=== PATIENT | male | born 1950 | race Caucasian/White ===

== ENCOUNTER 2021-03-07 13:30 | Inpatient (IN) ==
[2021-03-07 14:09] LABS: Basophils # (auto) 0.03 K/uL (0-0.2); Basophils % (auto) 0.2 %; Eosinophils # (auto) 0.02 K/uL (0-0.5); Eosinophils % (auto) 0.1 %; Hematocrit (blood only) 32.1 % (42-52); Hemoglobin 9.7 g/dL (14.0-18.0); Immature Granulocytes # (auto) 0.06 K/uL (0.00-0.02); Immature Granulocytes % (auto) 0.4 %; Lymphocytes % (auto) 5.3 %; Mean Corpuscular Hemoglobin 24.6 pg (25-34); Mean Corpuscular Hgb Conc 30.2 g/dL (32-36); Mean Corpuscular Volume 81.3 fL (80-100); Mean Platelet Volume 8.2 fL (7.4-10.4); Monocytes # (auto) 0.58 K/uL (0.11-0.59); Monocytes % (auto) 3.8 %; Neutrophils # (auto) 13.73 K/uL (1.4-6.5); Neutrophils % (auto) 90.2 %; Platelet Count 307 K/uL (130-400); RDW Coefficient of Variation 17.4 % (11.5-14.5); RDW Standard Deviation 52.3 fL (36.4-46.3); Red Blood Count 3.95 M/uL (4.7-6.1); White Blood Count 15.22 K/uL (4.8-10.8)
--- NOTE | 2021-03-07 14:09 | Emergency Department Note ---
Impression & Plan Acute GI bleeding, Rectal cancer, Rectal bleeding ED Provider Note NAME: MAMI WIGGINS AGE: 70 SEX: M : 1950 ARRIVES VIA: Ambulance INFORMANT: Patient ED PROVIDER(S): Alan Barnhart DO CHIEF COMPLAINT: Abdominal pain and rectal pain HPI: Patient is a 70-year-old male who presents to the ER for dark blood per rectum. He has a past medical history of colon cancer with a resection and ileostomy located in left lower quadrant performed over a year ago at [facility]. He notes has been having intermittent blood every 1 to 2 weeks but he is having significantly more amount of pain and bleeding today. All started this morning. Pain was a 10 out of 10 and has improved. Denies any dysuria urgency or frequency. He does take Eliquis. No headache or neck pain. No chest pain or shortness of breath. No other exacerbating or remitting factors. Feels the pain which is sharp and stabbing in the lower belly going to his rectum. He feels like something has to come out. He notices dark blood and questions if there is some mucus present as well. ROS: See above HPI for pertinent positives & negatives. A total of 10 systems reviewed and were otherwise negative. PAST MEDICAL HISTORY:See Below PAST SURGICAL HISTORY:See Below FAMILY HISTORY:See Below SOCIAL HISTORY:See Below HOME MEDICATIONS:See Below ALLERGIES:See Below VITALS:See Below PHYSICAL EXAMINATION: GENERAL: Lying in bed, disheveled, chronically ill-appearing EYE EXAM: normal conjunctiva. PERRL and EOM's grossly intact. OROPHARYNX: no exudate, no erythema, lips, buccal mucosa, and tongue normal and mucous membranes are moist NECK: supple, no nuchal rigidity, no adenopathy, non-tender LUNGS: Clear to auscultation. Normal chest wall mechanics HEART: no murmurs, S1 normal and S2 normal ABDOMEN: abdomen soft, minimally tender in the lower pelvic region with ileostomy left lower quadrant dark brown stool, normo-active bowel sounds, no masses, no rebound or guarding. : Solomon present with clear yellow urine UPPER EXTREMITIES: upper extremities are grossly normal. LOWER EXTREMITIES: No pitting edema. NEURO EXAM: Normal sensorium, cranial nerves II-XII grossly intact, normal s peech, no gross weakness of arms, no gross weakness of legs. MEDICAL DECISION MAKING: Patient is a 70-year-old male who presents ER for right red blood per rectum on apixaban with an ileostomy. IV was established blood was obtained. Labs show leukocytosis of 15,000. Mild anemia at 9.7 consistent with previous. INR was unremarkable. BMP with slightly elevated glucose. LFTs bilirubin was unremarkable. Stool was heme positive for mildly ostomy. Rectally gross bright red blood. CT abdomen pelvis showed no significant change from previous. Discussed with Dr. Ho from [facility] as this patient follows with [facility]. Agrees with observation here. Discussed with hospitalist for further evaluation Dr. Gilberto Hooper. Patient was updated bedside. He remained stable throughout the stay in ER. Did not reverse as hemoglobin was stable including heart rate and blood pressure. Triage Nursing notes reviewed. Limited review of prior medical records performed Vital Signs: reviewed and remarkable for no significant abnormalities Differential diagnosis: Differential diagnosis includes etiologies such as diverticulitis, diverticulosis, AVM, coagulopathy, colitis, inflammatory bowel disease, malignancy, Judith-Rogel tear, esophagitis, peptic ulcer disease, variceal bleed, gastritis, epistaxis, fissure, hemorrhoids, as well as others were entertained. ER treatment provided: See below Diagnostics interpreted by me: ECG: Sinus rhythm rate of 87 Right bundle branch block PVCs QTC 474 Poor baseline Cardiac Monitoring: An order was placed for continuous cardiac monitoring. The monitor shows a rate of 78 with sinus rhythm. Laboratory studies: As stated above and show below. Imaging studies: CT abdomen pelvis as described above Consultation(s): Discussed with [facility] Dr. Ho Discussed with Dr. Gilberto Hooper for admission Procedures: none Critical Care: None Past Med/Surg History Medical History (Updated 03/07/21 @ 20:31 by Alan Barnhart DO) Aortic valve stenosis Basal cell carcinoma Carotid stenosis COPD (chronic obstructive pulmonary disease) Coronary heart disease CVA (cerebral vascular accident) Deviated nasal septum Diabetes External hemorrhoid Gallstone pancreatitis GERD (gastroesophageal reflux disease) Glaucoma H/O fracture of skull Steel plate Hearing loss Hyperlipidemia Hypertension Left hemiparesis Osteoarthritis Peptic ulcer disease Prostate cancer Surgical History History of left cataract surgery Hx of colonoscopy S/P hernia repair S/P shoulder surgery Left shoulder S/P tonsillectomy Family History Mother , 99yo Stomach ulcer Father , 84yo Hx of CABG Diabetes Heart valve replaced Brother Heart valve replaced Brother Prostate cancer Social History Smoking Status: Former smoker Cigarettes Per Day: Smoked 2 PPD x 50yrs but was less over past couple yrs;; Second Hand Exposure: No; Hx Alcohol Use: No Hx Substance Use: Yes Preferred Language: Guatemalan Communication Ability: Effective Visual Impairment: No Limitations Hearing Ability: Hard of Hearing Mounter Automatic Required: No Beliefs That Will Affect Care: None marital status: Current Living Situation: Alone Current Living Situation Comment: Lives at [facility] in [place]; 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; Feels Safe at Home: Yes caffeine: No during the past year weight has: remained stable Allergies Allergies Allergy/AdvReac Type Severity Reaction Status Date / Time No Known Drug Allergies Allergy Unknown Verified 03/07/21 16:35 Home Meds Home Medications Medication Instructions Recorded Confirmed latanoprost 0.005 % eye drops 1 drops OPB HS 05/30/19 03/07/21 nitroglycerin 0.4 mg sublingual 0.4 mg SL Q5M PRN 05/30/19 03/07/21 tablet pravastatin 40 mg tablet 40 mg PO HS 05/30/19 03/07/21 tamsulosin 0.4 mg capsule 0.4 mg PO DAILY 05/30/19 03/07/21 aspirin 81 mg tablet,delayed 81 mg PO DAILY 06/02/19 03/07/21 release (Adult Aspirin Regimen) albuterol sulfate 2.5 mg INH Q4H PRN 10/05/19 03/07/21 albuterol sulfate 90 mcg/actuation 2 puffs INH Q4H PRN 10/05/19 03/07/21 breath activated powder inhaler docusate sodium 100 mg capsule 100 mg PO BID 10/05/19 03/07/21 guaifenesin 200 mg tablet 400 mg PO BID tab 10/05/19 03/07/21 multivitamin 1 tab PO DAILY 10/05/19 03/07/21 apixaban 2.5 mg tablet (Eliquis) 2.5 mg PO Q12 12/06/19 03/07/21 acetaminophen 325 mg tablet 650 mg PO Q8 03/07/21 03/07/21 fluticasone 500 mcg-salmeterol 50 1 inh INHALATION BID 03/07/21 03/07/21 mcg/dose blistr powdr for inhalation (Maggiirineonazia Inhub) megestrol 40 mg tablet 80 mg PO TID 03/07/21 03/07/21 metoprolol tartrate 50 mg tablet 25 mg PO BID 03/07/21 03/07/21 naloxone 4 mg/actuation nasal 1 spray INTRANASAL DAILY PRN 03/07/21 03/07/21 spray (Narcan) ondansetron HCl 8 mg tablet 8 mg PO Q8H PRN 03/07/21 03/07/21 oxycodone 5 mg tablet 5 mg PO Q6 03/07/21 03/07/21 tiotropium bromide 18 mcg capsule 1 cap INHALATION DAILY 03/07/21 03/07/21 with inhalation device (Spiriva with HandiHaler) Previous Rx's Medication Instructions Recorded finasteride 5 mg tablet 5 mg PO DAILY #30 tab 10/25/19 Results & Data (ED) Vital Signs Vital Signs - 24 hr 03/07/21 13:51 03/07/21 14:00 03/07/21 14:23 Temperature 37.1 C Temperature Source Oral Pulse Rate 79 79 Pulse Rate from SpO2 Sensor Respiratory Rate 16 20 Respiratory Effort / Characteristics Non-Labored Respiratory Depth Normal Blood Pressure 127/87 123/59 L Blood Pressure Mean 100 80 Blood Pressure Position Sitting Pulse Oximetry 95 95 96 Oxygen Delivery Method Room Air Room Air Room Air Sepsis Recent Fever Within 48 Hours No Sepsis New/Unexplained Change in Mental Status N/A Sepsis Action Taken by Nursing No Action Required 03/07/21 14:30 03/07/21 16:00 03/07/21 16:30 Temperature Temperature Source Pulse Rate 75 88 81 Pulse Rate from SpO2 Sensor 75 81 Respiratory Rate 20 22 17 Respiratory Effort / Characteristics Respiratory Depth Blood Pressure 140/54 L Blood Pressure Mean 82 Blood Pressure Position Pulse Oximetry 97 96 93 Oxygen Delivery Method Room Air Room Air Sepsis Recent Fever Within 48 Hours Sepsis New/Unexplained Change in Mental Status Sepsis Action Taken by Nursing 03/07/21 17:00 03/07/21 17:30 03/07/21 18:00 Temperature Temperature Source Pulse Rate 78 91 H 86 Pulse Rate from SpO2 Sensor 78 Respiratory Rate 16 25 H 27 H Respiratory Effort / Characteristics Respiratory Depth Blood Pressure 164/75 H Blood Pressure Mean 104 Blood Pressure Position Pulse Oximetry 95 Oxygen Delivery Method Sepsis Recent Fever Within 48 Hours Sepsis New/Unexplained Change in Mental Status Sepsis Action Taken by Nursing 03/07/21 18:30 03/07/21 19:00 03/07/21 19:30 Temperature Temperature Source Pulse Rate 74 84 83 Pulse Rate from SpO2 Sensor Respiratory Rate 13 22 24 Respiratory Effort / Characteristics Respiratory Depth Blood Pressure Blood Pressure Mean Blood Pressure Position Pulse Oximetry Oxygen Delivery Method Sepsis Recent Fever Within 48 Hours Sepsis New/Unexplained Change in Mental Status Sepsis Action Taken by Nursing 03/07/21 20:00 Temperature Temperature Source Pulse Rate 74 Pulse Rate from SpO2 Sensor Respiratory Rate 21 Respiratory Effort / Characteristics Respiratory Depth Blood Pressure Blood Pressure Mean Blood Pressure Position Pulse Oximetry Oxygen Delivery Method Sepsis Recent Fever Within 48 Hours Sepsis New/Unexplained Change in Mental Status Sepsis Action Taken by Nursing Laboratory Data Result diagrams: 03/07/21 13:59 03/07/21 13:59 Lab Results 03/07/21 03/07/21 03/07/21 Range/Units 13:58 13:59 13:59 WBC 15.22 H (4.8-10.8) K/uL RBC 3.95 L (4.7-6.1) M/uL Hgb 9.7 L (14.0-18.0) g/dL Hct 32.1 L (42-52) % MCV 81.3 (80-100) fL MCH 24.6 L (25-34) pg MCHC 30.2 L (32-36) g/dL RDW Std Deviation 52.3 H (36.4-46.3) fL RDW Coeff of Shorty 17.4 H (11.5-14.5) % Plt Count 307 (130-400) K/uL MPV 8.2 (7.4-10.4) fL Immature Gran % (Auto) 0.4 % Neut % (Auto) 90.2 % Lymph % (Auto) 5.3 % [place] % (Auto) 3.8 % Eos % (Auto) 0.1 % Baso % (Auto) 0.2 % Neut # (Auto) 13.73 H (1.4-6.5) K/uL Lymph # (Auto) 0.80 L (1.2-3.4) K/uL [place] # (Auto) 0.58 (0.11-0.59) K/uL Eos # (Auto) 0.02 (0-0.5) K/uL Baso # (Auto) 0.03 (0-0.2) K/uL Immature Gran # (Auto) 0.06 H (0.00-0.02) K/uL PT (9.0-12.0) Seconds INR (0.9-1.1) APTT (21.0-31.0) Seconds PTT Ratio Sodium (136-145) mmol/L Potassium (3.5-5.1) mmol/L Chloride (98-107) mmol/L Carbon Dioxide (21-32) mmol/L Anion Gap (3-11) BUN (7-18) mg/dl Creatinine (0.6-1.4) mg/dl Est Cr Clr Drug Dosing ml/min Est GFR ( Amer) ml/min Est GFR (Non-Af Amer) ml/min BUN/Creatinine Ratio (10-20) Glucose (70-99) mg/dl Calcium (8.5-10.1) mg/dl Total Bilirubin (0.2-1) mg/dl AST (15-37) U/L ALT (12-78) U/L Alkaline Phosphatase (45-117) U/L Total Protein (6.4-8.2) gm/dl Albumin (3.4-5.0) gm/dl Globulin (2.5-4.0) gm/dl Albumin/Globulin Ratio (0.9-2) POC Stool Occult Blood Positive A (Negative) COVID-19 Eval Order SARS-CoV-2 (PCR) (Negative) Blood Type A Positive Antibody Screen NEGATIVE 03/07/21 03/07/21 03/07/21 Range/Units 13:59 13:59 14:00 WBC (4.8-10.8) K/uL RBC (4.7-6.1) M/uL Hgb (14.0-18.0) g/dL Hct (42-52) % MCV (80-100) fL MCH (25-34) pg MCHC (32-36) g/dL RDW Std Deviation (36.4-46.3) fL RDW Coeff of Shorty (11.5-14.5) % Plt Count (130-400) K/uL MPV (7.4-10.4) fL Immature Gran % (Auto) % Neut % (Auto) % Lymph % (Auto) % [place] % (Auto) % Eos % (Auto) % Baso % (Auto) % Neut # (Auto) (1.4-6.5) K/uL Lymph # (Auto) (1.2-3.4) K/uL [place] # (Auto) (0.11-0.59) K/uL Eos # (Auto) (0-0.5) K/uL Baso # (Auto) (0-0.2) K/uL Immature Gran # (Auto) (0.00-0.02) K/uL PT 10.9 (9.0-12.0) Seconds INR 1.1 (0.9-1.1) APTT 29.0 (21.0-31.0) Seconds PTT Ratio 1.1 Sodium 138 (136-145) mmol/L Potassium 3.9 (3.5-5.1) mmol/L Chloride 105 (98-107) mmol/L Carbon Dioxide 25 (21-32) mmol/L Anion Gap 9.0 (3-11) BUN 19 H (7-18) mg/dl Creatinine 0.81 (0.6-1.4) mg/dl Est Cr Clr Drug Dosing 79.8 ml/min Est GFR ( Amer) 102.9 ml/min Est GFR (Non-Af Amer) 88.8 ml/min BUN/Creatinine Ratio 22.9 H (10-20) Glucose 121 H (70-99) mg/dl Calcium 8.8 (8.5-10.1) mg/dl Total Bilirubin 0.3 (0.2-1) mg/dl AST 20 (15-37) U/L ALT 15 (12-78) U/L Alkaline Phosphatase 66 (45-117) U/L Total Protein 7.0 (6.4-8.2) gm/dl Albumin 2.6 L (3.4-5.0) gm/dl Globulin 4.4 H (2.5-4.0) gm/dl Albumin/Globulin Ratio 0.6 L (0.9-2) POC Stool Occult Blood (Negative) COVID-19 Eval Order Covid19 at [facility] SARS-CoV-2 (PCR) (Negative) Blood Type Antibody Screen 03/07/21 Range/Units 14:00 WBC (4.8-10.8) K/uL RBC (4.7-6.1) M/uL Hgb (14.0-18.0) g/dL Hct (42-52) % MCV (80-100) fL MCH (25-34) pg MCHC (32-36) g/dL RDW Std Deviation (36.4-46.3) fL RDW Coeff of Shorty (11.5-14.5) % Plt Count (130-400) K/uL MPV (7.4-10.4) fL Immature Gran % (Auto) % Neut % (Auto) % Lymph % (Auto) % [place] % (Auto) % Eos % (Auto) % Baso % (Auto) % Neut # (Auto) (1.4-6.5) K/uL Lymph # (Auto) (1.2-3.4) K/uL [place] # (Auto) (0.11-0.59) K/uL Eos # (Auto) (0-0.5) K/uL Baso # (Auto) (0-0.2) K/uL Immature Gran # (Auto) (0.00-0.02) K/uL PT (9.0-12.0) Seconds INR (0.9-1.1) APTT (21.0-31.0) Seconds PTT Ratio Sodium (136-145) mmol/L Potassium (3.5-5.1) mmol/L Chloride (98-107) mmol/L Carbon Dioxide (21-32) mmol/L Anion Gap (3-11) BUN (7-18) mg/dl Creatinine (0.6-1.4) mg/dl Est Cr Clr Drug Dosing ml/min Est GFR ( Amer) ml/min Est GFR (Non-Af Amer) ml/min BUN/Creatinine Ratio (10-20) Glucose (70-99) mg/dl Calcium (8.5-10.1) mg/dl Total Bilirubin (0.2-1) mg/dl AST (15-37) U/L ALT (12-78) U/L Alkaline Phosphatase (45-117) U/L Total Protein (6.4-8.2) gm/dl Albumin (3.4-5.0) gm/dl Globulin (2.5-4.0) gm/dl Albumin/Globulin Ratio (0.9-2) POC Stool Occult Blood (Negative) COVID-19 Eval Order SARS-CoV-2 (PCR) NEGATIVE (Negative) Blood Type Antibody Screen Administered Medications Discontinued Medications Ioversol (Optiray 320 100ml) 90 ml IV ONCE ONE Stop: 03/07/21 15:50 Last Admin: 03/07/21 15:54 Dose: 90 ml Documented by: [id number] Imaging Data Radiologist's Impression: Abdomen/Pelvis CT 03/07/21 15:18 CT SCAN OF THE ABDOMEN AND PELVIS WITH IV CONTRAST CLINICAL HISTORY: Rectal bleeding. Rectal carcinoma. COMPARISON STUDY: Abdominal CT dated 12/13/2020. Pelvic MRI dated 02/12/2021. TECHNIQUE: Following the IV administration of 90 cc of Optiray 320, CT scan of the abdomen and pelvis is performed from the lung bases to the proximal femora. Images are reviewed in the axial, sagittal, and coronal planes. IV contrast was administered without complication. A dose lowering technique was utilized adhering to the principles of ALARA. CT DOSE: 430.41 mGy.cm FINDINGS: Lung bases: The heart is mildly enlarged and without pericardial effusion. There is evidence of previous valve surgery. Pacemaker leads are noted. The coronary arteries and mitral annulus are densely calcified. The lung bases are clear noting bibasilar scarring/atelectasis. Liver: The contrast-enhanced liver is normal in size, contour, and attenuation. There is no intrahepatic biliary ductal dilatation. The hepatic veins and portal veins are patent. There are scattered calcified granulomas. Gallbladder: Unremarkable. Spleen: Normal in size and attenuation. Pancreas: Moderately atrophic and grossly unremarkable. Adrenal glands: Mild nodularity of the adrenal glands is unchanged. Kidneys: The contrast enhanced kidneys demonstrate mild cortical atrophy and are without hydronephrosis. The kidneys enhance symmetrically. A 4.9 cm cyst is again seen arising from the right lower pole. This contains thick enhancing and calcified septations, and is similar to previous. A 2.7 cm septated cyst is again seen in the interpolar left kidney. Additional subcentimeter cortical hypodensities likely represent cysts but are too small for definitive characterization. Abdominal vasculature: There is advanced atherosclerotic calcification and mild ectasia of the abdominal aorta. Bowel: There is postoperative change from double barrel colostomy in the left lower quadrant. A small parastomal hernia contains nonobstructed portions of colon. No bowel obstruction is identified. The rectal wall is thickened and edematous. Irregularity/discontinuity is again seen involving the anterior wall of the rectum, likely representing treatment related change and possible perforation this is best seen on axial image #357. Several perirectal nodules/lymph nodes are identified. The largest is seen on image #333 and measures 1 1.9 x 1.0 0 cm. The appendix is not well-visualized. Peritoneum: There is no intraperitoneal free air or abdominal ascites. Lymphadenopathy: None. Pelvic viscera: Diffuse infiltration is seen throughout the pelvis. The prostate gland is enlarged and heterogeneous. A Solomon catheter is in place. The bladder is partially distended and appears markedly thick walled with pericystic inflammation. A bladder diverticulum is seen posteriorly on the left. Skeletal structures: The skeletal structures are osteopenic. There is moderate lumbosacral spondylosis. Chronic compression deformities are again seen T11, T12, and L1. No lytic or blastic lesions are seen. Arthritic change is noted in the hips. IMPRESSION: 1. Again seen is postoperative change from double barrel colostomy in the left lower quadrant. There is no bowel obstruction. 2. Rectal wall thickening and edema is similar to previous. Focal discontinuity/irregularity of the anterior rectal wall likely represents treatment related change/contained perforation. This is unchanged from previous. 3. Enlarged perirectal nodules/lymph nodes are similar to previous. 4. The bladder wall appears markedly thickened with surrounding infiltration. Th is is typical for cystitis and may be treatment related. Correlate with clinical findings and urinalysis. 5. There is no evidence of distant metastatic disease in the abdomen or pelvis. 6. Septated cystic renal lesions are unchanged. These are consistent with Bosniak 2F lesions. 7. Additional findings as above. ACT 112: Negative or not required by law. Electronically signed by: Michel Noguera M.D. 03/07/2021 4:13 PM Discharge Plan Visit Data Chief Complaint: Rectal Bleed Stated Complaint: LOWER AB & RECTAL PAIN ED Provider: Alan Barnhart Discharge Problem: Acute GI bleeding, Rectal cancer, Rectal bleeding Forms Stand Alone Forms: [facility] Prescriptions Prescriptions: No Action albuterol sulfate 90 mcg/actuation aerosol powdr breath activated 2 puffs INH Q4H PRN (Reason: Shortness Of Breath Or Wheezing) RF: 0 albuterol sulfate 2.5 mg /3 mL (0.083 %) solution for nebulization 2.5 mg INH Q4H PRN (Reason: Shortness Of Breath Or Wheezing) RF: 0 docusate sodium 100 mg capsule 100 mg PO BID RF: 0 multivitamin Tablet 1 tab PO DAILY RF: 0 Eliquis 2.5 mg tablet 2.5 mg PO Q12 RF: 0 aspirin [Adult Aspirin Regimen] 81 mg tablet,delayed release (DR/EC) 81 mg PO DAILY RF: 0 latanoprost 0.005 % drops 1 drops OPB HS RF: 0 nitroglycerin 0.4 mg tablet, sublingual 0.4 mg SL Q5M PRN (Reason: Chest Pain) RF: 0 pravastatin 40 mg tablet 40 mg PO HS RF: 0 tamsulosin 0.4 mg capsule 0.4 mg PO DAILY RF: 0 guaifenesin 200 mg tablet 400 mg PO BID RF: 0 finasteride 5 mg tablet 5 mg PO DAILY Qty: 30 RF: 11 fluticasone propion-salmeterol [Wixela Inhub] 500-50 mcg/dose Blister With Device 1 inh INHALATION BID RF: 0 Spiriva with HandiHaler 18 mcg Capsule, W/Inhalation Device 1 cap INHALATION DAILY RF: 0 ondansetron HCl 8 mg Tablet 8 mg PO Q8H PRN (Reason: Nausea And Vomiting) RF: 0 Narcan 4 mg/actuation [place],Non-Aerosol 1 spray INTRANASAL DAILY PRN (Reason: Opioid Overdose) RF: 0 acetaminophen 325 mg Tablet 650 mg PO Q8 RF: 0 metoprolol tartrate 50 mg Tablet 25 mg PO BID RF: 0 megestrol 40 mg Tablet 80 mg PO TID RF: 0 oxycodone 5 mg tablet 5 mg PO Q6 RF: 0 Referrals Referrals: Kendra Rodriguez PA-C [Primary Care Provider] -
[2021-03-07 14:18] LABS: INR 1.1 (0.9-1.1); Partial Thromboplastin Ratio 1.1; Prothrombin Time 10.9 Seconds (9.0-12.0)
[2021-03-07 14:24] LABS: Albumin Level 2.6 gm/dl (3.4-5.0); BUN Creatinine Ratio 22.9 (10-20); Calcium 8.8 mg/dl (8.5-10.1); Creatinine Clr Calc Pharmacy 79.8 ml/min; Est GFR (African American) 102.9 ml/min; Est GFR (Non-African American) 88.8 ml/min; Potassium 3.9 mmol/L (3.5-5.1)
[2021-03-07 14:27] LABS: Albumin Globulin Ratio 0.6 (0.9-2); Bilirubin,Total 0.3 mg/dl (0.2-1); Globulin 4.4 gm/dl (2.5-4.0)
[2021-03-07] MEDS ORDERED: OPTIRAY 320 100ml IV ONE (15:49)
--- NOTE | 2021-03-07 16:14 | CT Scan Report ---
CT SCAN OF THE ABDOMEN AND PELVIS WITH IV CONTRAST CLINICAL HISTORY: Rectal bleeding. Rectal carcinoma. COMPARISON STUDY: Abdominal CT dated 12/13/2020. Pelvic MRI dated 02/12/2021. TECHNIQUE: Following the IV administration of 90 cc of Optiray 320, CT scan of the abdomen and pelvi s is performed from the lung bases to the proximal femora. Images are reviewed in the axial, sagittal , and coronal planes. IV contrast was administered without complication. A dose lowering technique wa s utilized adhering to the principles of ALARA. CT DOSE: 430.41 mGy.cm FINDINGS: Lung bases: The heart is mildly enlarged and without pericardial effusion. There is evidence of previ ous valve surgery. Pacemaker leads are noted. The coronary arteries and mitral annulus are densely ca lcified. The lung bases are clear noting bibasilar scarring/atelectasis. Liver: The contrast-enhanced liver is normal in size, contour, and attenuation. There is no intrahepa tic biliary ductal dilatation. The hepatic veins and portal veins are patent. There are scattered ghada cified granulomas. Gallbladder: Unremarkable. Spleen: Normal in size and attenuation. Pancreas: Moderately atrophic and grossly unremarkable. Adrenal glands: Mild nodularity of the adrenal glands is unchanged. Kidneys: The contrast enhanced kidneys demonstrate mild cortical atrophy and are without hydronephros is. The kidneys enhance symmetrically. A 4.9 cm cyst is again seen arising from the right lower pole. This contains thick enhancing and calcified septations, and is similar to previous. A 2.7 cm septate d cyst is again seen in the interpolar left kidney. Additional subcentimeter cortical hypodensities l ikely represent cysts but are too small for definitive characterization. Abdominal vasculature: There is advanced atherosclerotic calcification and mild ectasia of the abdomi nal aorta. Bowel: There is postoperative change from double barrel colostomy in the left lower quadrant. A small parastomal hernia contains nonobstructed portions of colon. No bowel obstruction is identified. The rectal wall is thickened and edematous. Irregularity/discontinuity is again seen involving the anteri or wall of the rectum, likely representing treatment related change and possible perforation this is best seen on axial image #357. Several perirectal nodules/lymph nodes are identified. The largest is seen on image #333 and measures 1 1.9 x 1.0 0 cm. The appendix is not well-visualized. Peritoneum: There is no intraperitoneal free air or abdominal ascites. Lymphadenopathy: None. Pelvic viscera: Diffuse infiltration is seen throughout the pelvis. The prostate gland is enlarged an d heterogeneous. A Solomon catheter is in place. The bladder is partially distended and appears markedl y thick walled with pericystic inflammation. A bladder diverticulum is seen posteriorly on the left. Skeletal structures: The skeletal structures are osteopenic. There is moderate lumbosacral spondylosi s. Chronic compression deformities are again seen T11, T12, and L1. No lytic or blastic lesions are s een. Arthritic change is noted in the hips. IMPRESSION: 1. Again seen is postoperative change from double barrel colostomy in the left lower quadrant. There is no bowel obstruction. 2. Rectal wall thickening and edema is similar to previous. Focal discontinuity/irregularity of the a nterior rectal wall likely represents treatment related change/contained perforation. This is unchang ed from previous. 3. Enlarged perirectal nodules/lymph nodes are similar to previous. 4. The bladder wall appears markedly thickened with surrounding infiltration. This is typical for cys titis and may be treatment related. Correlate with clinical findings and urinalysis. 5. There is no evidence of distant metastatic disease in the abdomen or pelvis. 6. Septated cystic renal lesions are unchanged. These are consistent with Bosniak 2F lesions. 7. Additional findings as above. ACT 112: Negative or not required by law. Electronically signed by: Michel Noguera M.D. 03/07/2021 4:13 PM
--- NOTE | 2021-03-07 17:50 | History & Physical Report ---
Date of Service March 07, 2021 Assessment & Plan (1) GI bleed: Plan: -Patient with chronic history of GI bleed from GI cancer and post partial colectomy and colostomy bag placement. -Vitals stable upon coming into the ED. No symptomatic signs of blood loss. -Hgb 9.7, WBC 15.22, Plt 307. -Unknown etiology of GI bleed at this point, Cancer bleed etiology vs irritation from bladder vs post-surgical adhesion vs perforation -Will continue to monitor patient vitals and if tachycardic or shows signs and symptoms of anemia will give fluid, H&H and if low transfuse. Consent was given to patient and informed about the blood transfusion. -Will continue to trend the H&H. (2) Acute anemia: Plan: -Hgb 9.7, WBC 15.22, Plt 307. -Will continue to monitor patient vitals and if tachycardic or shows signs and symptoms of anemia will give fluid, H&H and if low transfuse. Consent was given to patient and informed about the blood transfusion. -Will continue to trend the H&H. (3) Rectal cancer: Plan: Possible re-emergence of rectal cancer. According to patient prior cancer was pretty extensive in the region that was resected. Will follow with H&H for potential bleed due to cancer and look to pain control for the patient until he is feeling better to see the surgeon outpatient. (4) BPH NOS w ur obs/LUTS: Plan: Patient on home medication for BPH. Continue home meds. (5) Cystitis: Plan: CT abdomen pelvis shows bladder wall appears markedly thickened with surrounding infiltration. This is typical for cystitis and may be treatment related. May have some bladder inflammation that contributes to bowel wall irritation. Plan: 70 year old male with past medical history of colorectal cancer s/p chemotherapy and partial colectomy, aortic valve replacement, COPD, pancreatitis, glaucoma, HTN, DM, CAD, severe aortic stenosis (valve area of 0.7 as of 01/2019) s/p TAVR 01/2020, and prostate cancer coming in for rectal pain and bleeding. Code Status: DNI, Still wants CPR to be done if heart stops. History of Present Illness Chief Complaint: Bleeding per rectum Primary Care Provider: BOUCHRA BarreraC 70 year old male with past medical history of colorectal cancer s/p chemotherapy and partial colectomy, aortic valve replacement, COPD, pancreatitis, glaucoma, HTN, DM, CAD, severe aortic stenosis (valve area of 0.7 as of 01/2019) s/p TAVR 01/2020, and prostate cancer who came into the ED for rectal bleeding since 9AM this morning. Patient states he has had the rectal bleeding with pain on and off for the past 8 or 9 months since he first got his colostomy bag. He said that every week or 10 days he gets episodes of blood per rectum with sharp pain to the rectum and groin. He had previously gone to [place] a month ago for the same thing but was given outpatient OT with little success. He said this episode has started since this morning at around 9AM. The episodes of pain come in intervals of 10-15 minutes and cause 10/10 pain. Patient unsure of what color the blood was but said most likely bright red blood. Patient says that he takes all his medications once in the morning and once at night and the only difference is night time he takes aspirin. Patient most likely took Eliquis this morning since it is twice a day and he took the morning medication already. Patient denies any fevers, chills, lightheadedness, headaches, shortness of breath, chest pain. Patient was noted to be on Eliquis, however upon further inspection through the [employer] EMR he was on the Eliquis for a little while after his stroke in 2006 and it was renewed recently as patient got it in the mail and started taking it. Eliquis was not for his TAVR. Allergies Allergy/AdvReac Type Severity Reaction Status Date / Time No Known Drug Allergies Allergy Unknown Verified 03/07/21 16:35 Home Medications Medication Instructions Recorded Confirmed Type latanoprost 0.005 % eye drops 1 drops OPB HS 05/30/19 03/07/21 History nitroglycerin 0.4 mg sublingual 0.4 mg SL Q5M PRN 05/30/19 03/07/21 History tablet pravastatin 40 mg tablet 40 mg PO HS 05/30/19 03/07/21 History tamsulosin 0.4 mg capsule 0.4 mg PO DAILY 05/30/19 03/07/21 History aspirin 81 mg tablet,delayed 81 mg PO DAILY 06/02/19 03/07/21 History release (Adult Aspirin Regimen) albuterol sulfate 2.5 mg INH Q4H PRN 10/05/19 03/07/21 History albuterol sulfate 90 mcg/actuation 2 puffs INH Q4H PRN 10/05/19 03/07/21 History breath activated powder inhaler docusate sodium 100 mg capsule 100 mg PO BID 10/05/19 03/07/21 History guaifenesin 200 mg tablet 400 mg PO BID tab 10/05/19 03/07/21 History multivitamin 1 tab PO DAILY 10/05/19 03/07/21 History finasteride 5 mg tablet 5 mg PO DAILY #30 tab 10/25/19 03/07/21 Rx apixaban 2.5 mg tablet (Eliquis) 2.5 mg PO Q12 12/06/19 03/07/21 History acetaminophen 325 mg tablet 650 mg PO Q8 03/07/21 03/07/21 History fluticasone 500 mcg-salmeterol 50 1 inh INHALATION BID 03/07/21 03/07/21 History mcg/dose blistr powdr for inhalation (Maggixnazia Inhub) megestrol 40 mg tablet 80 mg PO TID 03/07/21 03/07/21 History metoprolol tartrate 50 mg tablet 25 mg PO BID 03/07/21 03/07/21 History naloxone 4 mg/actuation nasal 1 spray INTRANASAL DAILY PRN 03/07/21 03/07/21 History spray (Narcan) ondansetron HCl 8 mg tablet 8 mg PO Q8H PRN 03/07/21 03/07/21 History oxycodone 5 mg tablet 5 mg PO Q6 03/07/21 03/07/21 History tiotropium bromide 18 mcg capsule 1 cap INHALATION DAILY 03/07/21 03/07/21 History with inhalation device (Spiriva with HandiHaler) Past Med/Surg History Medical History (Updated 03/07/21 @ 20:01 by Garth Valdes DO) Aortic valve stenosis Basal cell carcinoma Carotid stenosis COPD (chronic obstructive pulmonary disease) Coronary heart disease CVA (cerebral vascular accident) Deviated nasal septum Diabetes External hemorrhoid Gallstone pancreatitis GERD (gastroesophageal reflux disease) Glaucoma H/O fracture of skull Steel plate Hearing loss Hyperlipidemia Hypertension Left hemiparesis Osteoarthritis Peptic ulcer disease Prostate cancer Surgical History History of left cataract surgery Hx of colonoscopy S/P hernia repair S/P shoulder surgery Left shoulder S/P tonsillectomy Family History Mother , 99yo Stomach ulcer Father , 84yo Hx of CABG Diabetes Heart valve replaced Brother Heart valve replaced Brother Prostate cancer Social History Smoking Status: Former smoker Cigarettes Per Day: Smoked 2 PPD x 50yrs but was less over past couple yrs;; Second Hand Exposure: No; Hx Alcohol Use: No Hx Substance Use: Yes Preferred Language: Fijian Communication Ability: Effective Visual Impairment: No Limitations Hearing Ability: Hard of Hearing 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: No Beliefs That Will Affect Care: None marital status: Current Living Situation: Alone Current Living Situation Comment: Lives at [facility] in [place]; current occupational status: retired 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 Cardiovascular: RRR, no murmur, no edema Chest (Breasts): normal inspection/palpation of breasts Gastrointestinal (Abdomen): Bowel sounds present in all 4 quadrants. Colostomy in left lower quadrant, no blood seen however bag was just changed. Patient had episode of pain at rectum and groin while I was present where he was stiff with pain. Abdomen non-tender, soft, non-distended. Psychiatric: A+Ox3, euthymic affect Results & Data Results & [facility] ([facility]) Vital Signs (Past 12 Hours) Vital Signs Temp Pulse Resp BP Pulse Ox 03/07/21 16:00 88 22 140/54 L 96 03/07/21 14:30 75 20 97 03/07/21 14:23 96 03/07/21 14:00 79 20 123/59 L 95 03/07/21 13:51 37.1 C 79 16 127/87 95 Supervising Physician Co-Signing Physician Notes I personally examined the patient and verified all tiwari points of history and exam, discussed case, and agree with decision making with Dr Valdes Comes in with rectal bleedingbut notes this is a largely ongoing process that may be slightly worse as far as bleeding today. More than that he was having a very bad day with pain. He notes that he feels a degree of bladder contraction, and then very quickly thereafter he has either bladder pain and pressure or an intense rectal pain or bothmostly the rectal pain "terrible and intenseand then he has bleeding. These episodes last about 15 minutes from start to finish and he does not really have any significant pain in between. His bowels through his ostomy have been working normally, he has not noted any blood there. He is eating and drinking reasonably welland actually notes that in the last few days to may be a little bit longer his appetite has been improving. He does not feel weak, lightheaded, dizzy. He notes that from years and years of smoking his breathing is not as good as he would like to be and wonders if anything else can be donebut none of this is acute. Extensive chart reviewing done, given that most of his medical care is done at [facility], and he is not extremely aware of his medical details. Vitals noted, in general he is awake and alert pleasant no distress. HEENT normocephalic atraumatic mucous membranes moist. Breathing unlabored no accessory muscle use good effort. Abdomen is soft nondistended nontender no masses organomegaly, no guarding no rebound no rigidity. Ostomy bag has just been changed, so there is no stool in the bag at the time I see him, but it was reported to be very abnormal earlier. Rectum without overt gross blood or visual lesionsdue to the potentially friable tissue from his radiation treatment and malignancy, I opted to not check a digital rectal exam, and rather visually examined, due to risk of potential harm. Abdominal/rectal paingiven the way it seems to start with bladder symptoms and then very quickly progressed to rectal pain and then bleeding, and given his postop anatomy/malignant anatomy/potential radiation proctitis etc.I wonder if his bladder is adhered to his rectal stump, and that bladder contractions pulling on his rectum may be causing some of this pain. Not entirely clear, and I would like to discuss the case with his colorectal surgeon, and hopefully will be able to get in touch with him tomorrow. In the meantime, pain control with oxycodone/as needed morphine. He also wonders if his Solomon is not draining properly leading to some of the worsening recentlywe will ask nursing to change it. Rectal bleedingfrom malignancy, radiation proctitis, or both as the most likely. Fortunately is completely hemodynamically stable. Because of the fact that today seems a little bit worse with bleeding for him, we will observe with expectant management as though he could have a significant GI bleed, although fortunately I do not think this will be the case. He has good IV access, will follow his hemoglobin, he does not appear to need IV fluids at this time, but should he become even tachycardic we will give isotonic fluid boluses, and will have blood on hold if necessary. Pelvic findings on CTwhile the question of a small contained perforation is raised, on physical exam his abdomen is surprisingly benign, and he shows no history type signs of perforation or peritonitis, given that his belly does not hurt, his appetite is improving, his ostomy is working, etc. Serial exams, serial labs, serial history. Leukocytosisnonspecificsee above, but no clear findings of infection/perforation/peritonitis. Will check a CRP and pro calcitonin, follow closely, CBC in a.m. as well. No clear role for empiric antibiotics given how well he looks, outside of his bouts of rectal pain. Anticoagulationhe had no idea why he was on Eliquis. In review of records, I was able to find his discharge summary after his TAVR/pacemaker, and he was not on anticoagulation thenrather just dual antiplatelets. I do not see a history of A. fibalthough certainly with his back history this would be possible, and I do not see a history of venous thromboembolic diseasewhich again could be theoretically possible, but I see no record of it. Because of the rectal bleeding, and because of the fact that there is not an overt reason for his anticoagulation that would not be able to be interrupted, we will briefly hold the anticoagulation and antiplatelets to allow the bleeding to slow. The only clue I could possibly find in regards to his anticoagulation was a PCP note from about a year ago, during which time the patient himself asks the question of if he should be on Eliquisnoting that he had been on it quite a while ago was not taking it for quite a while, but had received a prescription fill through a mail order pharmacy for reasons that he was not clear of. With all of that, as well as with the bleeding and pain situationit seems more beneficial than risky to hold the Eliquis for now until the bleeding declares itself while we continue to see exactly what his indication for anticoagulation was. Resident Activity Tracking Resident Involvement: Resident Care Provided Care Provided: Adult Hospital Medicine
--- NOTE | 2021-03-07 20:06 | Billing Data ---
Date of Service March 07, 2021 Coding Level of Care Code 07858 Subseq Hosp Care Lvl 3
[2021-03-07] MEDS ORDERED: SODIUM CHLORIDE 0.9% 250 ML IV PRN (22:01)
[2021-03-07] MEDS ORDERED: ONDANSETRON INJ 2 MG/ML 2 ML VIAL IV PRN (22:01)
[2021-03-07] MEDS ORDERED: MoRPHine SULFATE 2 MG/ML CARP IV PRN (22:01)
--- NOTE | 2021-03-07 22:54 | Electrocardiogram Report ---
Test Reason : Blood Pressure : / mmHG Vent. Rate : 087 BPM Atrial Rate : 087 BPM P-R Int : 214 ms QRS Dur : 114 ms QT Int : 394 ms P-R-T Axes : 091 270 045 degrees QTc Int : 474 ms Poor data quality, interpretation may be adversely affected Sinus rhythm with 1st degree A-V block with occasional Premature ventricular complexes Right bundle branch block Inferior infarct , age undetermined Abnormal ECG When compared with ECG of 04-JUL-2011 10:24, Premature ventricular complexes are now Present IL interval has increased Right bundle branch block is now Present Inferior infarct is now Present Confirmed by Mo Wong ([id number]) on 03/07/2021 10:53:58 PM Referred By: Confirmed By:Mo Wong
[2021-03-07] MEDS: oxyCODONE HCL IR 5 MG TAB (IMMEDIATE RELEASE) PO SCH (23:37)
[2021-03-07] MEDS: MEGESTROL ACETATE 40 MG TAB PO SCH (23:37)
[2021-03-07] MEDS: METOPROLOL TARTRATE 25 MG TAB PO SCH (23:37)
[2021-03-07] MEDS: DOCUSATE SODIUM 100 MG CAP PO SCH (23:37)
[2021-03-07] MEDS: PRAVASTATIN SOD 40 MG TAB PO SCH (23:38)
[2021-03-07] MEDS: LATANOPROST 0.005% OP SOLN 2.5 ML BTL OPB SCH (23:39)
[2021-03-08] MEDS: ALBUTEROL 0.083% NEBU SOLN 3 ML VIAL INH PRN ×4 (01:26→23:39)
--- NOTE | 2021-03-08 06:38 | Hospitalist Progress Note ---
Date of Service March 08, 2021 Assessment & Plan (1) GI bleed: Plan: -Patient with chronic history of GI bleed from GI cancer and post partial colectomy and colostomy bag placement. -Vitals stable upon coming into the ED. No symptomatic signs of blood loss. -Hgb 9.7, WBC 15.22, Plt 307. -Unknown etiology of GI bleed at this point, Cancer bleed etiology vs irritation from bladder vs post-surgical adhesion vs perforation -Will continue to monitor patient vitals and if tachycardic or shows signs and symptoms of anemia will give fluid, H&H and if low transfuse. Consent was given to patient and informed about the blood transfusion. -Will continue to trend the H&H. -Dr. Motta had talked to Dr. Ryan on the phone 03/08. Dr. Ryan stated patient's symptoms may be due to bladder and rectal spasms. Will start Oxybutinin chloride extended release daily for bladder spasm. Told patient we can give Valium suppository PRN if he knows he's gonna have a bad day with the rectal spasm or he's had them frequently in the day. Before giving the Valium we will see if calming the bladder down will help calm the rectal spasms. -Dr. Ryan stated the possibility of further surgical intervention for the patient's symptoms. Ordered PFTs for possibility of surgical intervention and due to patient's history of COPD. -Will continue to monitor how patient does on the oxybutynin for now. (2) Acute anemia: Plan: -Hgb 9.7, WBC 15.22, Plt 307 on admission. Today Hgb 8.7, WBC 11.5, Plt 316. -Will continue to monitor patient vitals and if tachycardic or shows signs and symptoms of anemia will give fluid, H&H and if low transfuse. Consent was given to patient and informed about the blood transfusion. -Will continue to trend the H&H. (3) Rectal cancer: Plan: Possible re-emergence of rectal cancer. According to patient prior cancer was pretty extensive in the region that was resected. Will follow with H&H for potential bleed due to cancer and look to pain control for the patient until he is feeling better to see the surgeon outpatient. Rest of plan as stated above. (4) BPH NOS w ur obs/LUTS: Plan: Patient on home medication for BPH. Continue home meds along with oxybutynin with the reasoning stated above. (5) Cystitis: Plan: CT abdomen pelvis shows bladder wall appears markedly thickened with surrounding infiltration. This is typical for cystitis and may be radiation treatment related. May have some bladder inflammation that contributes to bowel wall irritation. However given that the bladder and bowel were noted not to have changed position from previous imaging, less likely they are adhesed. Local irritation is still a factor of consideration though as stated above. Plan: 70 year old male with past medical history of colorectal cancer s/p chemotherapy and partial colectomy, aortic valve replacement, COPD, pancreatitis, glaucoma, HTN, DM, CAD, severe aortic stenosis (valve area of 0.7 as of 01/2019) s/p TAVR 01/2020, and prostate cancer coming in for rectal pain and bleeding. Code Status: DNI, Still wants CPR to be done if heart stops. Admission and Anticipated Discharge Date Admission Date: March 07, 2021 Supervising Physician Co-Signing Physician Notes I personally examined the patient and verified all tiwari points of history and exam, discussed case, and agree with decision making with Dr Valdes Had a little bit of bladder spasms earlier, one bad episode, but not nearly as much as before. Bleeding seems to be less, although not entirely clear. Was able to discuss with his colorectal surgeonhe noted that fortunately is highly unlikely that his bladder and rectal stump are adhered together, and did offer good suggestions for treating the bladder spasms and rectal spasms. Further he noted that they have been having trouble getting his PFTs done in order to see if he might be a surgical candidate for the pelvic surgery he would require as it relates to his cancerous, and in discussion, he noted it would be greatly appreciated if we would be able to get them done while he is here. Vitals noted, in general he is awake and alert pleasant no distress. HEENT normocephalic atraumatic mucous membranes moist. Breathing unlabored no accessory muscle use good effort. Skin shows no rashes no pallor or icterus. He is quite hard of hearing. No other focal neuro deficits. Abdomen soft nondistended nontender no guarding no rebound no rigidity Pelvic painafter discussion with colorectal, seems probably temporally related but physiologically separatepossibly triggered together via his parasympathetic nervous systembut will manage as bladder spasms and rectal spasms. Start oxybutynin, titrate up as tolerated to alleviate spasms (watch for dry mouth and dizziness), as far as it relates to the rectal spasms themselves, he his colorectal surgeon suggested that a Valium suppository would be a reasonable optiondiscussing with the patient, what we will do with this is utilize it on a very low threshold but still as needed if it seems to be/is appearing to be a bad day with episodesthe reason for this being that his episodes are exceedingly intense, but so short-lived that trying to treat as needed, the medicine would probably start to work after the episode is abated. And also with his tenesmus, it would be unlikely to be able to put a suppository in whenever he is having spasm. Rectal bleedingquestionable acute blood loss anemia. He is completely hemodynamically stable and his bleeding yesterday was only marginally worse than his chronic. Right now there are no indications for transfusion. The bleeding is probably coming from the cancer, as well as possibly friable mucosa from radiation. Continue to follow clinically, follow periodic hemoglobin. Rectal cancer/prostate cancerpatient appears to be in a slow but steady decline, and his functional status is worsening. Given that his colorectal surgeon noted difficulty in being able to get him to get the PFTs, that may poss ibly pave the way for him to be able to have what could be a life-saving surgery, and that with his decline, if we do not get things set up in the relatively near future, he could have such a decline in functional status surgery would not be an optionto that end I discussed with our respiratory therapist, and they were kind enough to get PFTs while he is here (given that his breathing is basically at his baseline) Pelvic findings on CTwhile the question of small contained perforation is raised, on serial physical exams his abdomen is quite benign, and he shows no history, or physical exam signs of perforation or peritonitis. Appetite is good, ostomy is working. Suspect this is more cancerous/inflammatory changes. Leukocytosisnonspecificsee above, fortunately it has improved, and his inflammatory markers were reassuring (CRP and procalcitonin) Anticoagulationon even further chart review, it appears not only was he not prescribed Eliquis purposefully ongoing, the only time we can find it mentioned in his [place] records, it was instructed that there was no clear indication and he should not be taking it. I fear that unfortunately due to common pharmacy practice of sending refills when available, whether the patient requested or not, he may have gotten the mixed signal that he was supposed to be on a medication that he is not supposed to be on. In discussion with his colorectal surgeon, he had no opposition to the Eliquis being held. otherwise as above pharmacologic DVT prophylaxis obviously relatively contraindicated due to the rectal bleeding, mechanical prophylaxis of dubious benefit. Possible risk of skin breakdown. Subjective Patient was seen at bedside this morning. Patient states that he had one episode of pain and urge to defecate this morning but it did not last very long for him. He has been taking his medications and drinking without problems. He denies any fevers, shortness of breath, abdominal pain other than the episodes, nausea, vomiting. Physical Exam Constitutional: WD/WN, vitals as above well developed and well nourished Eyes: PERRL, conjunctivae normal, anicteric sclerae Respiratory: normal respiratory effort, lungs clear to auscultation Cardiovascular: RRR, no murmur, no edema Chest (Breasts): normal inspection/palpation of breasts Gastrointestinal (Abdomen): Bowel sounds auscultated throughout abdomen, no abnormal drainage from colostomy site. Soft, non-tender, non distended abdomen. Psychiatric: A+Ox3, euthymic affect Results & Data Results & Data ([facility]) Vital Signs (Past 12 Hours) Vital Signs Temp Pulse Pulse Resp BP BP Pulse Ox 03/08/21 04:58 36.9 C 80 18 153/71 H 93 03/08/21 01:27 77 20 92 03/07/21 23:43 36.5 C 84 20 149/67 H 93 03/07/21 22:49 93 H 03/07/21 21:25 84 03/07/21 21:00 36.6 C 74 20 157/72 H 96 03/07/21 20:30 89 25 H 142/66 H 81 L 03/07/21 20:00 74 21 03/07/21 19:30 83 24 03/07/21 19:00 84 22 Resident Activity Tracking Resident Involvement: Resident Care Provided Care Provided: [facility] Medicine
[2021-03-08] MEDS: oxyCODONE HCL IR 5 MG TAB (IMMEDIATE RELEASE) PO SCH ×3 (06:39→17:06)
[2021-03-08] MEDS: FINASTERIDE 5 MG TAB PO SCH (07:58)
[2021-03-08] MEDS: METOPROLOL TARTRATE 25 MG TAB PO SCH ×2 (07:58→21:00)
[2021-03-08] MEDS: FLUTICASONE/VILANTEROL 100/25MCG 14 PUFFS/INHALER INH SCH (07:58)
[2021-03-08] MEDS: MEGESTROL ACETATE 40 MG TAB PO SCH ×3 (07:58→20:54)
[2021-03-08] MEDS: DOCUSATE SODIUM 100 MG CAP PO SCH ×2 (07:58→20:55)
[2021-03-08] MEDS: UMECLIDINIUM BROMIDE 62.5MCG/BLISTER 7 PUFFS/INHALER INH SCH (07:59)
[2021-03-08 08:39] LABS: Basophils # (auto) 0.02 K/uL (0-0.2); Basophils % (auto) 0.2 %; Eosinophils # (auto) 0.12 K/uL (0-0.5); Hematocrit (blood only) 28.3 % (42-52); Hemoglobin 8.7 g/dL (14.0-18.0); Immature Granulocytes # (auto) 0.03 K/uL (0.00-0.02); Immature Granulocytes % (auto) 0.3 %; Lymphocytes # (auto) 0.39 K/uL (1.2-3.4); Lymphocytes % (auto) 3.4 %; Mean Corpuscular Hemoglobin 24.9 pg (25-34); Mean Corpuscular Hgb Conc 30.7 g/dL (32-36); Mean Corpuscular Volume 81.1 fL (80-100); Mean Platelet Volume 8.7 fL (7.4-10.4); Monocytes # (auto) 1.03 K/uL (0.11-0.59); Neutrophils # (auto) 9.91 K/uL (1.4-6.5); Neutrophils % (auto) 86.1 %; Platelet Count 316 K/uL (130-400); RDW Coefficient of Variation 17.7 % (11.5-14.5); RDW Standard Deviation 52.5 fL (36.4-46.3); Red Blood Count 3.49 M/uL (4.7-6.1)
[2021-03-08] MEDS ORDERED: TAMSULOSIN HCL 0.4 MG CAP PO SCH (09:00)
[2021-03-08] MEDS ORDERED: TIOTROPIUM BROMIDE 5 PUFF/90 MCG INH INH SCH (09:00)
[2021-03-08 09:33] LABS: BUN Creatinine Ratio 19.6 (10-20); Calcium 8.7 mg/dl (8.5-10.1); Creatinine Clr Calc Pharmacy 105.9 ml/min; Est GFR (African American) 115.6 ml/min; Est GFR (Non-African American) 99.8 ml/min; Potassium 3.7 mmol/L (3.5-5.1)
[2021-03-08] MEDS ORDERED: OXYBUTYNIN CHLORIDE XL 5 MG TABCR PO SCH (15:00)
[2021-03-08] MEDS ORDERED: ALBUTEROL HFA 8 GM INHALER INH ONE (16:12)
[2021-03-08] MEDS ORDERED: FLUTICASONE PROPIONATE NA SPR 16 GM BTL PRN (16:23)
[2021-03-08] MEDS ORDERED: FLUTICASONE PROPIONATE NA SPR 16 GM BTL SCH (16:30)
--- NOTE | 2021-03-08 16:44 | Billing Data ---
Date of Service March 08, 2021 Coding Level of Care Code 68143 Subseq Hosp Care Lvl 3
[2021-03-08] MEDS: LATANOPROST 0.005% OP SOLN 2.5 ML BTL OPB SCH (20:55)
[2021-03-08] MEDS: PRAVASTATIN SOD 40 MG TAB PO SCH (20:55)
[2021-03-08] MEDS ORDERED: SODIUM CHLORIDE 0.9% 1000ML 500 ML IV ONE (23:37)
[2021-03-09 00:24] LABS: Hematocrit (blood only) 27.8 % (42-52); Hemoglobin 8.6 g/dL (14.0-18.0)
[2021-03-09] MEDS: oxyCODONE HCL IR 5 MG TAB (IMMEDIATE RELEASE) PO SCH ×5 (01:03→18:00)
[2021-03-09] MEDS: ACETAMINOPHEN 325 MG TAB PO PRN ×2 (01:05→21:25)
[2021-03-09] MEDS: HEPARIN 100 UNIT/ML 5ML FLUSH FLUSH PRN (01:14)
[2021-03-09] MEDS ORDERED: SODIUM CHLORIDE 0.9% 1000ML 500 ML IV ONE (03:25)
[2021-03-09] MEDS: NORTRIPTYLINE HCL 10 MG CAP PO SCH ×2 (04:27→21:28)
[2021-03-09] MEDS: ALBUTEROL 0.083% NEBU SOLN 3 ML VIAL INH PRN ×4 (06:09→20:25)
[2021-03-09 06:11] LABS: Basophils # (auto) 0.03 K/uL (0-0.2); Basophils % (auto) 0.3 %; Eosinophils # (auto) 0.15 K/uL (0-0.5); Eosinophils % (auto) 1.5 %; Hemoglobin 8.2 g/dL (14.0-18.0); Immature Granulocytes # (auto) 0.03 K/uL (0.00-0.02); Immature Granulocytes % (auto) 0.3 %; Lymphocytes # (auto) 0.54 K/uL (1.2-3.4); Lymphocytes % (auto) 5.4 %; Mean Corpuscular Hemoglobin 24.5 pg (25-34); Mean Corpuscular Hgb Conc 30.4 g/dL (32-36); Mean Corpuscular Volume 80.6 fL (80-100); Mean Platelet Volume 8.6 fL (7.4-10.4); Monocytes # (auto) 1.04 K/uL (0.11-0.59); Monocytes % (auto) 10.5 %; Neutrophils # (auto) 8.12 K/uL (1.4-6.5); Platelet Count 282 K/uL (130-400); RDW Coefficient of Variation 17.6 % (11.5-14.5); RDW Standard Deviation 52.4 fL (36.4-46.3); Red Blood Count 3.35 M/uL (4.7-6.1); White Blood Count 9.91 K/uL (4.8-10.8)
[2021-03-09 06:50] LABS: BUN Creatinine Ratio 18.9 (10-20); Calcium 8.3 mg/dl (8.5-10.1); Creatinine Clr Calc Pharmacy 113.3 ml/min; Est GFR (African American) 118.9 ml/min; Est GFR (Non-African American) 102.6 ml/min; Potassium 3.6 mmol/L (3.5-5.1)
--- NOTE | 2021-03-09 07:11 | Hospitalist Progress Note ---
Date of Service March 09, 2021 Assessment & Plan (1) GI bleed: Plan: -Patient with chronic history of GI bleed from GI cancer and post partial colectomy and colostomy bag placement. -Vitals stable upon coming into the ED. No symptomatic signs of blood loss. -Hgb 9.7, WBC 15.22, Plt 307. -Unknown etiology of GI bleed at this point, Cancer bleed etiology vs irritation from bladder vs post-surgical adhesion vs perforation -Will continue to monitor patient vitals and if tachycardic or shows signs and symptoms of anemia will give fluid, H&H and if low transfuse. Consent was given to patient and informed about the blood transfusion. -Will continue to trend the H&H. -Dr. Motta had talked to Dr. Ryan on the phone 03/08. Dr. Ryan stated patient's symptoms may be due to bladder and rectal spasms. Will start Oxybutinin chloride extended release daily for bladder spasm. Told patient we can give Valium suppository PRN if he knows he's gonna have a bad day with the rectal spasm or he's had them frequently in the day. Before giving the Valium we will see if calming the bladder down will help calm the rectal spasms. -Dr. Ryan stated the possibility of further surgical intervention for the patient's symptoms. Ordered PFTs for possibility of surgical intervention and due to patient's history of COPD. -03/09 increased the dose of oxybutynin and will give Valium suppository tonight before bed time since patient is still having episodes of pain and experienced nighttime attacks that lasted 6 hours in total. Will give trial of Valium 5mg AL tonight. -Also ordered PRN albuterol inhaler during attacks since there has been a small randomized control trial of the benefit of inhaled bysx-0-osectcsyve agonists to proctalgia fugax (rectal spasms). I saw patient after we got RT to give albuterol inhaler and he thinks it may have helped. I told the patient to let the nurse know as soon as he has another attack so he can use the albuterol inhaler as quickly as possible to see if there is any effectiveness to it. (2) Acute anemia: Plan: -Hgb 9.7, WBC 15.22, Plt 307 on admission. Today Hgb 8.7, WBC 11.5, Plt 316. -Will continue to monitor patient vitals and if tachycardic or shows signs and symptoms of anemia will give fluid, H&H and if low transfuse. Consent was given to patient and informed about the blood transfusion. -Will continue to trend the H&H. (3) Rectal cancer: Plan: Possible re-emergence of rectal cancer. According to patient prior cancer was pretty extensive in the region that was resected. Will follow with H&H for potential bleed due to cancer and look to pain control for the patient until he is feeling better to see the surgeon outpatient. Rest of plan as stated above. (4) BPH NOS w ur obs/LUTS: Plan: Patient on home medication for BPH. Continue home meds along with oxybutynin with the reasoning stated above. (5) Cystitis: Plan: CT abdomen pelvis shows bladder wall appears markedly thickened with surrounding infiltration. This is typical for cystitis and may be radiation treatment related. May have some bladder inflammation that contributes to bowel wall irritation. However given that the bladder and bowel were noted not to have changed position from previous imaging, less likely they are adhesed. Local irritation is still a factor of consideration though as stated above. Plan: 70 year old male with past medical history of colorectal cancer s/p chemotherapy and partial colectomy, aortic valve replacement, COPD, pancreatitis, glaucoma, HTN, DM, CAD, severe aortic stenosis (valve area of 0.7 as of 01/2019) s/p TAVR 01/2020, and prostate cancer coming in for rectal pain and bleeding. Code Status: DNI, Still wants CPR to be done if heart stops. Admission and Anticipated Discharge Date Admission Date: March 07, 2021 Supervising Physician Co-Signing Physician Notes I personally examined the patient and verified all tiwari points of history and exam, discussed case, and agree with decision making with Dr Valdes Still had episodes of bladder spasm and pelvic painthey lasted longer, but none were quite as high in intensityprobably more moderate intensity rather than severe/intolerable. In discussing the plan, he was expressing understanding, and then started to have a spasm episode that was more severe. Vitals noted, in general he is awake and alert pleasant no distress initially, then later in the conversation he started appear in moderate distress due to a spasm episode.. HEENT normocephalic atraumatic mucous membranes moist. Breathing unlabored no accessory muscle use good effort. Skin shows no rashes no pallor or icterus. He is quite hard of hearing but hears okay with loud slow voice. No other focal neuro deficits. Pelvic painafter discussion with colorectal, seems probably temporally related but physiologically separatepossibly triggered together via his parasympathetic nervous systembut will manage as bladder spasms and rectal spasms. Titrate up oxybutynindoes not seem to be causing dry mouth/etc.and I do suspect that is the main reason that his episodes have been blunted in intensity. Given that he is having more episodes, even though they are not quite as severe, will give trial to Valium suppository tonight to follow for response. Resident physician reviewed literature, and actually albuterol inhaler appears to be helpful in mitigating rectal spasms as wellthis was ordered for rectal spasm in addition to shortness of breath, but given the overall "odd appearance" of said orderthis was communicated directly to nursing as far as the utility and the literature.. Rectal bleedingquestionable acute blood loss anemia. He is completely hemodynamically stable and his bleeding yesterday was only marginally worse than his chronic. Continues to be no indications for transfusion. The bleeding is probably coming from the cancer, as well as possibly friable mucosa from radiation. Continue to follow clinically, follow periodic hemoglobin. Rectal cancer/prostate cancerpatient appears to be in a slow but steady decline, and his functional status is worsening. Next step in aggressive care would be surgery, certainly would be appropriate for palliative type discussions as wellparticularly given how severe his COPD is, and facing a pelvic exoneration surgery. As we started to broach the topic of end-of-life type discussions even in terms of just more of a generic goals of care/options, he unfortunately had a fairly severe spasm episode and we needed to abort the conversation in order to order medicines to help abort the pain episode Severe COPDtriple inhaler therapy, oxygen, supportive careof note he was not on any anticholinergic prior to admission, this has been started, and should be continued after discharge Pelvic findings on CTwhile the question of small contained perforation is raised, on serial physical exams his abdomen is quite benign, and he shows no history, or physical exam signs of perforation or peritonitis. Appetite is good, ostomy is working. Suspect this is more cancerous/inflammatory changes. Leukocytosisnonspecificsee above, fortunately it has improved, and his inflammatory markers were reassuring (CRP and procalcitonin) Anticoagulationon even further chart review, it appears not only was he not prescribed Eliquis purposefully ongoing, the only time we can find it mentioned in his [place] records, it was instructed that there was no clear indication and he should not be taking it. I fear that unfortunately due to common pharmacy practice of sending refills when available, whether the patient requested or not, he may have gotten the mixed signal that he was supposed to be on a medication that he is not supposed to be on. In discussion with his colorectal surgeon, he had no opposition to the Eliquis being held. otherwise as above pharmacologic DVT prophylaxis obviously relatively contraindicated due to the rectal bleeding, mechanical prophylaxis of dubious benefit. Possible risk of skin breakdown. Subjective Patient was seen at bedside this morning. Patient had a few episodes of pain last night, he had nortriptyline added. He said he had a bout of 6 hours of pain last night and was unable to sleep very much because of it. He also had an episode of hypotension and was given 2 fluid boluses and had the dose of his oxycodone decreased. This morning when I saw him he was having an episode but it was not as painful for him. He has been taking his medications and drinking without problems. He denies any fevers, shortness of breath, abdominal pain other than the episodes, nausea, vomiting. When seeing the patient later in the day with Dr. Motta, patient experienced another painful episode of rectal pain. This episode looked as painful as the one he had the first time he came in. Physical Exam Constitutional: WD/WN, vitals as above well developed and well nourished Eyes: PERRL, conjunctivae normal, anicteric sclerae Respiratory: normal respiratory effort, lungs clear to auscultation Cardiovascular: RRR, no murmur, no edema Chest (Breasts): normal inspection/palpation of breasts Gastrointestinal (Abdomen): BS+ all 4 quadrants, non-distended, nontender. Site of the colostomy bag looks clean and without blood. Psychiatric: A+Ox3, euthymic affect Results & Data Results & Data ([facility]) Vital Signs (Past 12 Hours) Vital Signs Temp Pulse Pulse Resp BP Pulse Ox 1016/21 06:10 85 20 97 03/09/21 04:15 36.8 C 83 20 122/59 L 97 03/09/21 03:13 87 88/58 L 95 03/09/21 02:40 128/53 L 03/09/21 01:53 20 94/58 L 94 03/09/21 00:28 96 H 18 96/47 L 91 03/08/21 23:39 91 H 20 92 03/08/21 23:29 37.0 C 95 H 22 95/48 L 93 03/08/21 22:25 84 03/08/21 20:57 96 H 97/54 L 03/08/21 19:25 81 18 92 Resident Activity Tracking Resident Involvement: Resident Care Provided Care Provided: Adult Hospital Medicine
[2021-03-09] MEDS: FINASTERIDE 5 MG TAB PO SCH (08:46)
[2021-03-09] MEDS: DOCUSATE SODIUM 100 MG CAP PO SCH ×2 (08:46→21:26)
[2021-03-09] MEDS: MEGESTROL ACETATE 40 MG TAB PO SCH ×3 (08:46→21:25)
[2021-03-09] MEDS: UMECLIDINIUM BROMIDE 62.5MCG/BLISTER 7 PUFFS/INHALER INH SCH (08:47)
[2021-03-09] MEDS: METOPROLOL TARTRATE 25 MG TAB PO SCH ×2 (08:53→21:29)
[2021-03-09] MEDS: FLUTICASONE/VILANTEROL 100/25MCG 14 PUFFS/INHALER INH SCH (08:59)
[2021-03-09] MEDS ORDERED: OXYBUTYNIN CHLORIDE XL 5 MG TABCR PO SCH ×2 (09:00)
[2021-03-09] MEDS ORDERED: OXYBUTYNIN CHLORIDE 5 MG TAB PO STA (15:30)
--- NOTE | 2021-03-09 16:31 | Billing Data ---
Date of Service March 09, 2021 Coding Level of Care Code 11177 Subseq Hosp Care Lvl 3
[2021-03-09] MEDS ORDERED: Nursing to Pharmacy Communication SCH (17:30)
[2021-03-09] MEDS ORDERED: diazePAM RECTAL 2.5 MG GEL PR SCH (21:00)
[2021-03-09] MEDS: LATANOPROST 0.005% OP SOLN 2.5 ML BTL OPB SCH (21:26)
[2021-03-09] MEDS: PRAVASTATIN SOD 40 MG TAB PO SCH (21:28)
[2021-03-09] MEDS ORDERED: ACETAMINOPHEN 325 MG TAB PO PRN (21:28)
[2021-03-10] MEDS: HEPARIN 100 UNIT/ML 5ML FLUSH FLUSH PRN ×2 (00:21→08:59)
[2021-03-10] MEDS: oxyCODONE HCL IR 5 MG TAB (IMMEDIATE RELEASE) PO SCH ×4 (00:21→17:53)
[2021-03-10] MEDS: ALBUTEROL 0.083% NEBU SOLN 3 ML VIAL INH PRN ×4 (01:44→14:08)
[2021-03-10] MEDS: MoRPHine SULFATE 2 MG/ML CARP IV PRN ×2 (02:16→08:58)
--- NOTE | 2021-03-10 07:05 | Hospitalist Progress Note ---
Date of Service March 10, 2021 Assessment & Plan (1) GI bleed: Plan: -Patient with chronic history of GI bleed from GI cancer and post partial colectomy and colostomy bag placement. -Vitals stable upon coming into the ED. No symptomatic signs of blood loss. -Hgb 9.7, WBC 15.22, Plt 307. -Unknown etiology of GI bleed at this point, Cancer bleed etiology vs irritation from bladder vs post-surgical adhesion vs perforation -Will continue to monitor patient vitals and if tachycardic or shows signs and symptoms of anemia will give fluid, H&H and if low transfuse. Consent was given to patient and informed about the blood transfusion. -Will continue to trend the H&H. -Dr. Motta had talked to Dr. Ryan on the phone 03/08. Dr. Ryan stated patient's symptoms may be due to bladder and rectal spasms. Will start Oxybutinin chloride extended release daily for bladder spasm. Told patient we can give Valium suppository PRN if he knows he's gonna have a bad day with the rectal spasm or he's had them frequently in the day. Before giving the Valium we will see if calming the bladder down will help calm the rectal spasms. -Dr. Ryan stated the possibility of further surgical intervention for the patient's symptoms. Ordered PFTs for possibility of surgical intervention and due to patient's history of COPD. -03/09 increased the dose of oxybutynin and will give Valium suppository tonight before bed time since patient is still having episodes of pain and experienced nighttime attacks that lasted 6 hours in total. Will give trial of Valium 5mg ND tonight. -Also ordered PRN albuterol inhaler during attacks since there has been a small randomized control trial of the benefit of inhaled xuzl-8-bqavweuvcr agonists to proctalgia fugax (rectal spasms). I saw patient after we got RT to give albuterol inhaler and he thinks it may have helped. I told the patient to let the nurse know as soon as he has another attack so he can use the albuterol inhaler as quickly as possible to see if there is any effectiveness to it. (2) Acute anemia: Plan: -Hgb 9.7, WBC 15.22, Plt 307 on admission. Today Hgb 8.7, WBC 11.5, Plt 316. -Will continue to monitor patient vitals and if tachycardic or shows signs and symptoms of anemia will give fluid, H&H and if low transfuse. Consent was given to patient and informed about the blood transfusion. -Will continue to trend the H&H. (3) Rectal cancer: Plan: Possible re-emergence of rectal cancer. According to patient prior cancer was pretty extensive in the region that was resected. Will follow with H&H for potential bleed due to cancer and look to pain control for the patient until he is feeling better to see the surgeon outpatient. Rest of plan as stated above. (4) BPH NOS w ur obs/LUTS: Plan: Patient on home medication for BPH. Continue home meds along with oxybutynin with the reasoning stated above. (5) Cystitis: Plan: CT abdomen pelvis shows bladder wall appears markedly thickened with surrounding infiltration. This is typical for cystitis and may be radiation treatment related. May have some bladder inflammation that contributes to bowel wall irritation. However given that the bladder and bowel were noted not to have changed position from previous imaging, less likely they are adhesed. Local irritation is still a factor of consideration though as stated above. Plan: 70 year old male with past medical history of colorectal cancer s/p chemotherapy and partial colectomy, aortic valve replacement, COPD, pancreatitis, glaucoma, HTN, DM, CAD, severe aortic stenosis (valve area of 0.7 as of 01/2019) s/p TAVR 01/2020, and prostate cancer coming in for rectal pain and bleeding. Code Status: DNI, Still wants CPR to be done if heart stops. Admission and Anticipated Discharge Date Admission Date: March 07, 2021 Subjective Patient was seen at bedside this morning. Patient had a few episodes of pain last night, he had nortriptyline added. He said he had a bout of 6 hours of pain last night and was unable to sleep very much because of it. He also had an episode of hypotension and was given 2 fluid boluses and had the dose of his oxycodone decreased. This morning when I saw him he was having an episode but it was not as painful for him. He has been taking his medications and drinking without problems. He denies any fevers, shortness of breath, abdominal pain other than the episodes, nausea, vomiting. When seeing the patient later in the day with Dr. Motta, patient experienced another painful episode of rectal pain. This episode looked as painful as the one he had the first time he came in. Physical Exam Constitutional: WD/WN, vitals as above well developed and well nourished Eyes: PERRL, conjunctivae normal, anicteric sclerae Respiratory: normal respiratory effort, lungs clear to auscultation Cardiovascular: RRR, no murmur, no edema Chest (Breasts): normal inspection/palpation of breasts Psychiatric: A+Ox3, euthymic affect Results & Data Results & Data ([facility]) Vital Signs (Past 12 Hours) Vital Signs Temp Pulse Pulse Resp BP Pulse Ox 03/10/21 02:37 36.8 C 84 18 129/63 97 03/10/21 01:44 97 H 18 94 03/09/21 23:25 36.9 C 107 H 20 123/64 94 03/09/21 22:45 105 H 03/09/21 21:28 102 H 123/62 03/09/21 20:34 95 H 18 96 03/09/21 20:20 36.8 C 102 H 20 117/64 96
[2021-03-10 07:47] LABS: Basophils # (auto) 0.02 K/uL (0-0.2); Basophils % (auto) 0.2 %; Eosinophils # (auto) 0.24 K/uL (0-0.5); Eosinophils % (auto) 2.5 %; Hematocrit (blood only) 27.5 % (42-52); Hemoglobin 8.5 g/dL (14.0-18.0); Immature Granulocytes # (auto) 0.03 K/uL (0.00-0.02); Immature Granulocytes % (auto) 0.3 %; Lymphocytes # (auto) 0.89 K/uL (1.2-3.4); Lymphocytes % (auto) 9.4 %; Mean Corpuscular Hemoglobin 24.7 pg (25-34); Mean Corpuscular Hgb Conc 30.9 g/dL (32-36); Mean Corpuscular Volume 79.9 fL (80-100); Mean Platelet Volume 8.5 fL (7.4-10.4); Monocytes # (auto) 0.51 K/uL (0.11-0.59); Monocytes % (auto) 5.4 %; Neutrophils # (auto) 7.75 K/uL (1.4-6.5); Neutrophils % (auto) 82.2 %; Platelet Count 282 K/uL (130-400); RDW Coefficient of Variation 17.5 % (11.5-14.5); RDW Standard Deviation 51.1 fL (36.4-46.3); Red Blood Count 3.44 M/uL (4.7-6.1); White Blood Count 9.44 K/uL (4.8-10.8)
[2021-03-10 08:06] LABS: BUN Creatinine Ratio 17.6 (10-20); Calcium 8.7 mg/dl (8.5-10.1); Creatinine Clr Calc Pharmacy 119.3 ml/min; Est GFR (African American) 121.6 ml/min; Est GFR (Non-African American) 104.9 ml/min; Potassium 3.9 mmol/L (3.5-5.1)
[2021-03-10] MEDS: DOCUSATE SODIUM 100 MG CAP PO SCH (08:48)
[2021-03-10] MEDS: MEGESTROL ACETATE 40 MG TAB PO SCH ×2 (08:48→15:52)
[2021-03-10] MEDS: FINASTERIDE 5 MG TAB PO SCH (08:48)
[2021-03-10] MEDS: METOPROLOL TARTRATE 25 MG TAB PO SCH (08:48)
[2021-03-10] MEDS: UMECLIDINIUM BROMIDE 62.5MCG/BLISTER 7 PUFFS/INHALER INH SCH (08:49)
[2021-03-10] MEDS: FLUTICASONE/VILANTEROL 100/25MCG 14 PUFFS/INHALER INH SCH (08:52)
[2021-03-10] MEDS ORDERED: OXYBUTYNIN CHLORIDE XL 5 MG TABCR PO SCH (09:00)
[2021-03-10 15:13] VITALS: BP 118/71; TEMP 97.5; O2SAT 95
--- NOTE | 2021-03-10 17:12 | Discharge Summary ---
Date of Service March 10, 2021 Admission HPI Per Admitting Provider 70 year old male with past medical history of colorectal cancer s/p chemotherapy and partial colectomy, aortic valve replacement, COPD, pancreatitis, glaucoma, HTN, DM, CAD, severe aortic stenosis (valve area of 0.7 as of 01/2019) s/p TAVR 01/2020, and prostate cancer who came into the ED for rectal bleeding since 9AM this morning. Patient states he has had the rectal bleeding with pain on and off for the past 8 or 9 months since he first got his colostomy bag. He said that every week or 10 days he gets episodes of blood per rectum with sharp pain to the rectum and groin. He had previously gone to [place] a month ago for the same thing but was given outpatient OT with little success. He said this episode has started since this morning at around 9AM. The episodes of pain come in intervals of 10-15 minutes and cause 10/10 pain. Patient unsure of what color the blood was but said most likely bright red blood. Patient says that he takes all his medications once in the morning and once at night and the only difference is night time he takes aspirin. Patient most likely took Eliquis this morning since it is twice a day and he took the morning medication already. Patient denies any fevers, chills, lightheadedness, headaches, shortness of breath, chest pain. Patient was noted to be on Eliquis, however upon further inspection through the [facility] EMR he was on the Eliquis for a little while after his stroke in 2006 and it was renewed recently as patient got it in the mail and started taking it. Eliquis was not for his TAVR. Principal Diagnosis bladder and rectal spasms Discharge Exam Constitutional WD/WN, vitals as above well developed and well nourished Eyes PERRL, conjunctivae normal, anicteric sclerae Respiratory normal respiratory effort, lungs clear to auscultation Cardiovascular RRR, no murmur, no edema Chest (Breasts) normal inspection/palpation of breasts Psychiatric A+Ox3, euthymic affect Discharge Data Allergies Allergy/AdvReac Type Severity Reaction Status Date / Time No Known Drug Allergies Allergy Unknown Verified 03/07/21 16:35 Consultations 03/07/21 16:25 ED Decision to Admit Stat Ordered Studies 03/07/21 15:18 CT abd pelvis IV con only Stat IMPRESSION: 1. Again seen is postoperative change from double barrel colostomy in the left lower quadrant. There is no bowel obstruction. 2. Rectal wall thickening and edema is similar to previous. Focal discontinuity/irregularity of the anterior rectal wall likely represents treatment related change/contained perforation. This is unchanged from previous. 3. Enlarged perirectal nodules/lymph nodes are similar to previous. 4. The bladder wall appears markedly thickened with surrounding infiltration. This is typical for cystitis and may be treatment related. Correlate with clinical findings and urinalysis. 5. There is no evidence of distant metastatic disease in the abdomen or pelvis. 6. Septated cystic renal lesions are unchanged. These are consistent with Bosniak 2F lesions. Hospital Course (1) GI bleed: -Patient with chronic history of GI bleed from GI cancer and post partial colectomy and colostomy bag placement. -Vitals stable upon coming into the ED. No symptomatic signs of blood loss. -On admission Hgb 9.7, WBC 15.22, Plt 307. -Etiology of the bleed + spasm not entirely clear but at this time at least partly thought to be due to bladder spasm irritating rectum. -Dr. Motta had talked to Dr. Ryan on the phone 03/08. Dr. Ryan stated patient's symptoms may be due to bladder and rectal spasms. Started patient on Oxybutynin for rectal spasm as well as PRN suppository Valium. -Dr. Ryan stated the possibility of further surgical intervention for the patient's symptoms. PFTs were performed, showed COPD pattern with FVC of 2.00, FEV1 0.88, FEV1/FVC of 43.83. -Told patient to take the Oxybutynin as prescribed for discharge, Valium PRN if it seems he's having a bad day for rectal spasms, as well as albuterol inhaler PRN during an attack (UpToDate) -Patient able to walk with walker before discharge. (2) Acute anemia: -Hgb 9.7, WBC 15.22, Plt 307 on admission. Hgb fluctuated between 8 and 9. No blood transfusions necessary during stay (3) Rectal cancer: Possible re-emergence of rectal cancer. According to patient prior cancer was pretty extensive in the region that was resected. Rest of plan as stated above. (4) BPH NOS w ur obs/LUTS: Patient on home medication for BPH. Continue home meds along with oxybutynin with the reasoning stated above. (5) Cystitis: CT abdomen pelvis shows bladder wall appears markedly thickened with surrounding infiltration. This is typical for cystitis and may be radiation treatment related. May have some bladder inflammation that contributes to bowel wall irritation. However given that the bladder and bowel were noted not to have changed position from previous imaging, less likely they are adhesed. Local irritation is still a factor of consideration though as stated above. 70 year old male with past medical history of colorectal cancer s/p chemotherapy and partial colectomy, aortic valve replacement, COPD, panc reatitis, glaucoma, HTN, DM, CAD, severe aortic stenosis (valve area of 0.7 as of 01/2019) s/p TAVR 01/2020, and prostate cancer coming in for rectal pain and bleeding. Total Time Total Time Spent Total Time Spent (In Minutes): See attending attestation. Discharge Plan Discharge Items Patient Disposition: Home - Self-Care Reason For Visit: GI BLEED Discharge Diagnosis: rectal spasms Activity: Resume your previous activity Non-emergency contact: Primary Care Provider and Surgeon Call non-emergency contact if: you have any medication questions, your symptoms worsen and your pain is not controlled Follow-up/Referrals: Kendra Rodriguez PA-C [Primary Care Provider] - Diet: Regular Addtl Attending Provider Instructions: rectal spasms -after further review, the pain that you are having seems to be a combination of bladder spasms and then secondary rectal spasms -with everything going on in your pelvis with the cancer, radiation changes, post op changes, etc, it's no surprise that these sort of things might come up - and while controlling the symptoms is the main way we're going to be able to work on things, it appears that what we're doing has been helping -the main thing that is helping is the medicine called oxybutynin - it's usually used for overactive bladder, but in this case we're using it for the bladder spasms. for now we'll have you on 10mg in the morning, and 5mg at bedtime. they can bump the dose a little more if you need. the main side effect we worry about is actually urinary retention (ie not being able to get urine out of your bladder) - but that's not at all a concern when you have the catheter in -- i only mention that if you were ever to be at a point that they took the catheter out we'd want to have you watched closely. otherwise what we watch for hasn't happened yet - which is that it can cause dry mouth and sometimes make people feel dizzy. the goal of the oxybutynin is to prevent the spasms from happening at all, and to reduce how severe they are when they happen -the "back up plan" is the suppository (pill you put in your rectum) of valium (diazepam) -- this is basically a mild sedative and muscle relaxant -and so it helps with the spasms by relaxing the area in your rectum and generally relaxing you as a whole. because it would be nearly impossible to put the suppository in during an episode, this is more something that you would use when it seems like you're having a bad day - so that you can try to cut down on how bad the bad day is. realize that it can be fairly sedating - so use it sparingly - and also only use it if it's OK that you might end up taking a nap -very oddly, but in the medical literature, dr singer found that albuterol (your red, rescue, "as needed" inhaler) can also potentially help cut an event of rectal spasm when it happens. because albuterol gets absorbed very quickly and works very quickly, it's actually the most likely tool you'll have to use for when you're in the middle of a bad episode. using it via inhaler or nebulizer is basically the same, so i would have you use whichever is easier. COPD -we were able to get the pulmonary function tests done, and dr singer will be reaching out to dr steiner to get him the results, but unfortunately the tests show not only that you have smoker's lung, but also that it is fairly severe. you're already on the right inhalers for this with the spiriva (the teal pill that you inhale once a day) and the symbicort (the red, quan, blue one that you take twice a day every day) and the albuterol (red, rescue inhaler). those lung volume tests do show that the COPD is pretty severe, so i would think that Dr Steiner will need to discuss things with his anesthesiology team as it relates to surgery rectal bleeding -the bleeding is there due to the cancer (cancers tend to bleed a lot) and likely also inflammation and irritation from radiation (while radiation can help shrink cancers, it can essentially cause an inflamed irritation to mucous membranes) -fortunately the bleeding does not really seem to have accumulated too much as far as actual blood loss -of course, if the bleeding picks up and seems worse, or if you were to feel weak/lightheaded/dizzy - blood loss can accumulate so it would be really reasonable to get checked out and have blood counts checked should you develop any of those symptoms -being off blood thinners can help reduce bleeding - while the bleeding might not stop, it can reduce how severe the bleeding is/how much blood you lose -when we researched your situation, we can not find any clear reason that you absolutely need to be on the eliquis (apixaban) - so we'd recommend you stop t aking it. because of prior vascular disease, i would recommend that you go back on your aspirin Pending Studies at Discharge: No Stand-Alone Forms: My [facility] [employer], Smoking Cessation Medications and DC Order Prescriptions: New oxybutynin chloride 5 mg tablet 5 mg PO UD Qty: 90 RF: 0 diazepam 2.5 mg kit 2.5 mg AR Q12H PRN (Reason: seizure activity) Qty: 2 RF: 0 Continued albuterol sulfate 90 mcg/actuation aerosol powdr breath activated 2 puffs INH Q4H PRN (Reason: Shortness Of Breath Or Wheezing) RF: 0 albuterol sulfate 2.5 mg /3 mL (0.083 %) solution for nebulization 2.5 mg INH Q4H PRN (Reason: Shortness Of Breath Or Wheezing) RF: 0 docusate sodium 100 mg capsule 100 mg PO BID RF: 0 multivitamin Tablet 1 tab PO DAILY RF: 0 aspirin [Adult Aspirin Regimen] 81 mg tablet,delayed release (DR/EC) 81 mg PO DAILY RF: 0 latanoprost 0.005 % drops 1 drops OPB HS RF: 0 nitroglycerin 0.4 mg tablet, sublingual 0.4 mg SL Q5M PRN (Reason: Chest Pain) RF: 0 pravastatin 40 mg tablet 40 mg PO HS RF: 0 tamsulosin 0.4 mg capsule 0.4 mg PO DAILY RF: 0 guaifenesin 200 mg tablet 400 mg PO BID RF: 0 finasteride 5 mg tablet 5 mg PO DAILY Qty: 30 RF: 11 fluticasone propion-salmeterol [Wixela Inhub] 500-50 mcg/dose Blister With Device 1 inh INHALATION BID RF: 0 Spiriva with HandiHaler 18 mcg Capsule, W/Inhalation Device 1 cap INHALATION DAILY RF: 0 ondansetron HCl 8 mg Tablet 8 mg PO Q8H PRN (Reason: Nausea And Vomiting) RF: 0 Narcan 4 mg/actuation [place],Non-Aerosol 1 spray INTRANASAL DAILY PRN (Reason: Opioid Overdose) RF: 0 acetaminophen 325 mg Tablet 650 mg PO Q8 RF: 0 metoprolol tartrate 50 mg Tablet 25 mg PO BID RF: 0 megestrol 40 mg Tablet 80 mg PO TID RF: 0 oxycodone 5 mg tablet 5 mg PO Q6 RF: 0 Discontinued Eliquis 2.5 mg tablet 2.5 mg PO Q12 RF: 0 Discharge Orders: Discharge Order (Routine); Ordered 03/10/21 Ordered By: Alan Motta Admission Data Admit Date/Time: 03/07/21 18:36 Attending Provider: Alan Motta Admit Provider: Garth Singer Primary Care Provider: Kendra Rodriguez Other Providers: Gilberto Hooper ; [facility] Supervising Physician Co-Signing Physician Notes I personally examined the patient and verified all tiwari points of history and exam, discussed case, and agree with decision making with Dr Singer feeling better - still having episodes but less intense. feels up to going home. nursing had him get out of bed - showing functional capacity around his baseline -- appearing safe for home. Vitals noted, in general he is awake and alert pleasant no distress. HEENT normocephalic atraumatic mucous membranes moist. Breathing unlabored no accessory muscle use good effort. Skin shows no rashes no pallor or icterus. He is quite hard of hearing but hears okay with loud slow voice. No other focal neuro deficits. Pelvic painafter discussion with colorectal, seems probably temporally related but physiologically separatepossibly triggered together via his parasympathetic nervous systembut will manage as bladder spasms and rectal spasms. Titrate up oxybutynindoes not seem to be causing dry mouth/etc.and I do suspect that is the main reason that his episodes have been blunted in intensity. Discharge on 10mg AM, 5mg PM. colorectal suggested valium suppository as well - given that it would be difficult for him to self admin during an episode and would likely take effect after episode self aborted - rec'd usage during days that seem to be bad days, but also caution drowsiness. Resident physician reviewed literature, and actually albuterol inhaler appears to be helpful in mitigating rectal spasms as wellthis was ordered for rectal spasm in addition to shortness of breath, but given the overall "odd appearance" of said orderthis was communicated in depth Rectal bleedingquestionable acute blood loss anemia. He is completely hemodynamically stable and his bleeding yesterday was only marginally worse than his chronic. Continues to be no indications for transfusion. The bleeding is probably coming from the cancer, as well as possibly friable mucosa from radiation. Continue to follow clinically, follow periodic hemoglobin as outpt - but safe for home. Rectal cancer/prostate cancerpatient appears to be in a slow but steady decline, and his functional status is worsening. Next step in aggressive care would be surgery, certainly would be appropriate for palliative type discussions as wellparticularly given how severe his COPD is, and facing a pelvic exoneration surgery. outpt f/u. Severe COPDtriple inhaler therapy, oxygen, supportive carehe is on symbicort and spiriva as outpt, w prn albuterol -- continue this Pelvic findings on CTwhile the question of small contained perforation is raised, on serial physical exams his abdomen is quite benign, and he shows no history, or physical exam signs of perforation or peritonitis. Appetite is good, ostomy is working. Suspect this is more cancerous/inflammatory changes. Leukocytosisnonspecificsee above, fortunately it has improved, and his inflammatory markers were reassuring (CRP and procalcitonin) Anticoagulationon even further chart review, it appears not only was he not prescribed Eliquis purposefully ongoing, the only time we can find it mentioned in his [facility] records, it was instructed that there was no clear indication and he should not be taking it. I fear that unfortunately due to common pharmacy practice of sending refills when available, whether the patient requested or not, he may have gotten the mixed signal that he was supposed to be on a medication that he is not supposed to be on. In discussion with his colorectal surgeon, he had no opposition to the Eliquis being held. araseli formally anthony'jose stable for home Resident Activity Tracking Resident Involvement: Resident Care Provided Care Provided: Adult Hospital Medicine
[2021-03-10 17:16] VITALS: PULSE 72
--- NOTE | 2021-03-10 18:03 | Billing Data ---
Date of Service March 10, 2021 Coding Level of Care Code D/C DAY MANAGEMENT <30 MINS
--- NOTE | 2021-04-03 13:13 | Procedure Note ---
Procedure Note Date of Service April 03, 2021 Note PFT interpretation: FEV1 is 0.88 L or 29% predicted with an FVC of 2.0 L or 51% predicted. Ratio is reduced at 43. Bronchodilators were administered with borderline response. The FEV1 improved by 24% but only by a total of 230 mL. Patient was unable to do lung volumes and diffusion capacity was reduced at 33%. Clinical correlation is required and the testing did not meet inspiratory volume greater than 90% criteria for DLCO so data may be suspect. Coding CPT Codes Pulmonary/Thoracic - Pulmonary and Thoracic: 82770 Evaluation of wheezing ([id number]) Pulmonary/Thoracic - Pulmonary and Thoracic: 42918 Plethysmography - lung volumes, airway res ([id number]) Pulmonary/Thoracic - Pulmonary and Thoracic: 16811 Diffusing capacity ([id number]) [facility] [place] Procedure Codes (Charges) Pulmonary/Thoracic Procedure 1: Pulmonary and Thoracic: 44064 Evaluation of wheezing Procedure 2: Pulmonary and Thoracic: 62954 Plethysmography - lung volumes, airway res Procedure 3: Pulmonary and Thoracic: 43055 Diffusing capacity
== END 2021-03-10 18:10 | disposition home or self-care (01) | DRG 699 ==
LOC: ED 13:30 → 2N 18:36